=== PATIENT | male | born 1960 | race African-American/Black ===

== ENCOUNTER 2018-12-27 23:45 | Emergency (ER) | payer MEDICARE, MEDICAID ==
[~2018-12-27] VITALS: Ht 175.3 cm; Wt 83.9 kg
[2018-12-28 00:15] VITALS: BP 127/88
[2018-12-28] MEDS ORDERED: ACET-704 PO (01:27)
--- NOTE | 2018-12-28 01:27 | PHYS DOC ---
Past Medical History Past Medical History: Other Additional Past Medical Histor: PTSD Past Surgical History: No Surgical History Alcohol Use: None Drug Use: None Adult General Chief Complaint Chief Complaint: HAND PROBLEM HPI HPI Patient is a 58 year old male who presents with 10 out of 10 right pinky finger pain that began 2 days ago while working on his vehicle. He believes the stiven came down and fell on his right pinky finger. He is right-handed. Patient describes the pain as throbbing and intermittent worse on holding items specifically his cane Review of Systems Review of Systems Constitutional: Denies fever or chills [] Musculoskeletal: Reports right pinky finger pain Integument: Denies rash or skin lesions [] Neurologic: Denies headache, focal weakness or sensory changes [] All other systems were reviewed and found to be within normal limits, except as documented in this note. Allergies Allergies Allergies Coded Allergies Type Severity Reaction Last Updated Verified No Known Drug Allergies 12/28/18 No Physical Exam Physical Exam Constitutional: Well developed, well nourished, no acute distress, non-toxic appearance. [] Skin: Warm, dry, no erythema, no rash. [] Back: No tenderness, no CVA tenderness. [] Extremities: Right pinky finger appears deformed on the distal end. Tenderness on palpation of the right pinky finger distal end. Limited range of motion to the right pinky finger due to pain. Adequate ulnar sensation to the right pinky finger. +2 right radial pulse. Cap refill less than 2 seconds the right pinky finger. Neurologic: Alert and oriented X 3, normal motor function, normal sensory function, no focal deficits noted. [] Psychologic: Affect normal, judgement normal, mood normal. [] Current Patient Data Vital Signs Vital Signs Date Time Temp Pulse Resp B/P (MAP) Pulse Ox O2 Delivery O2 Flow Rate FiO2 12/28/18 00:15 98.7 76 16 127/88 (101) 97 Room Air 98.7 EKG EKG [] Radiology/Procedures Radiology/Procedures [] Course & Med Decision Making Course & Med Decision Making Pertinent Labs and Imaging studies reviewed. (See chart for details) This is a 58-year-old male patient presented to the ED today with right pinky finger pain that began 2 days ago after an injury. Right pinky finger x-rays interpreted by Dr. Bermudez were noted for distal phalanx fracture. Patient was placed in a finger splint by the ED RN, neurovascular exam is intact. Ice elevation encouraged. Follow-up with orthopedic doctor in the course of this week. Dominga Disclaimer Harvinderon Disclaimer This electronic medical record was generated, in whole or in part, using a voice recognition dictation system. Departure Departure Impression: Primary Impression: Finger fracture, right Disposition: HOME, SELF-CARE Condition: STABLE Referrals: NO PCP (PCP) YISSEL PRICE MD follow up in the course of this week Patient Instructions: Finger Fracture (Phalangeal)-[facility] Additional Instructions: You were seen for right pinky finger fracture. Wear the provided splint as tolerated. Try to ice and elevate the extremity. Follow-up with the provided orthopedic doctor in the course of this week. Scripts Acetaminophen With Codeine (TYLENOL WITH CODEINE #3 TABLET) 1 Each Tablet 1 TAB PO PRN Q6HRS PRN for PAIN, #20 TAB Prov: RUPERTO ANDRADE APRN 12/28/18 Problem Qualifiers Primary Impression: Finger fracture, right Encounter type: initial encounter Finger: little finger Fracture type: closed Phalanx: distal Fracture alignment: nondisplaced Qualified Codes: S62.666A - Nondisplaced fracture of distal phalanx of right little finger, initial encounter for closed fracture RUPERTO ANDRADE APRN Dec 28, 2018 01:27
[2018-12-28] MEDS ORDERED: NAPROXEN 500 MG TABLET PO ONE (02:00)
[2018-12-28] MEDS ORDERED: HYDROcodone/APAP 5/325MG 1 TAB TABLET PO ONE (02:00)
--- NOTE | 2018-12-28 04:20 | RAD ---
Three-view right fifth finger radiographs 12/28/2018 CLINICAL HISTORY: Injury to the right fifth finger. PA, lateral and oblique digital radiographs of the right fifth finger were obtained. An acute transverse nondisplaced fracture of the mid diaphysis of the distal phalanx of the right fifth finger is seen. No dislocation is noted. IMPRESSION: Acute fracture of the distal phalanx of the right fifth finger. Electronically signed by: Jean Paul Metz MD (12/28/2018 4:17 AM) [facility]
== END 2018-12-28 01:43 | disposition home or self-care (01) ==
LOC: ER 23:45
DX: S62.666A Nondisplaced fracture of distal phalanx of right little finger, initial encounter for closed fracture (principal); X58.XXXA Exposure to other specified factors, initial encounter; Y93.89 Activity, other specified; Y92.89 Other specified places as the place of occurrence of the external cause; Y99.8 Other external cause status
CPT/HCPCS: 29130; 73140; 99284-25